=== PATIENT | female | born 2000 | race Caucasian/White ===

== ENCOUNTER 2019-03-03 08:47 | Inpatient (IN) | payer OTHER ==
[2019-03-03] MEDS ORDERED: Ampicillin 2 GM in Sodium Chloride 0.9% 100 ML IV ONE (10:43)
[2019-03-03] MEDS ORDERED: Nalbuphine 10 MG/ML Syringe IVPUSH PRN (10:43)
[2019-03-03] MEDS ORDERED: Sodium Chloride 0.9% 10 ML Syringe FLUSH PRN (10:43)
[2019-03-03] MEDS ORDERED: Oxytocin/Lactated Ringers 10 UNIT/1,000 ML BAG IV SCH (10:45)
[2019-03-03] MEDS: Lactated Ringers 1,000 ML IV SCH ×5 (11:11→21:59)
[2019-03-03] MEDS ORDERED: diphenhydrAMINE 50 MG/ML SDV IVPUSH PRN (12:00)
[2019-03-03] MEDS ORDERED: ePHEDrine 50 MG/ML SDV IVPUSH PRN (12:00)
[2019-03-03] MEDS: fentaNYL 100 MCG/2 ML SDV EPIDUR PRN ×2 (12:23→18:34)
[2019-03-03] MEDS: fentaNYL/Bupivacaine/NS 2 MCG-0.125% 250 ML EPIDUR PRN (12:24)
--- NOTE | 2019-03-03 12:28 | PCM.PREANE ---
Preanesthetic Assessment - Procedure Proposed Procedure: epidural - Anesthesia/Transfusion/Family Hx Anesthesia History: Prior Anesthesia Without Reaction Family History of Anesthesia Reaction: No Transfusion History: No Prior Transfusion(s) - Review of Systems General: Fatigue Pulmonary: No Symptoms Cardiovascular: No Symptoms Gastrointestinal: Abdominal Pain (labor) Neurological: No Symptoms Other: Reports: None - Physical Assessment Height: 1.7 m Weight: 106.594 kg ASA Class: 2 Mental Status: Alert & Oriented x3 Airway Class: Mallampati = 1 Dentition: Reports: Normal Dentition Thyro-Mental Finger Breadths: 3 Mouth Opening Finger Breadths: 3 ROM/Head Extension: Full Lungs: Clear to Auscultation, Normal Respiratory Effort Cardiovascular: Regular Rate, Regular Rhythm - Lab Values: Laboratory Last Values WBC 14.72 K/mm3 (3.98-10.04) H 03/03/19 11:00 RBC 4.56 M/mm3 (3.98-5.22) 03/03/19 11:00 Hgb 13.3 gm/dl (11.2-15.7) 03/03/19 11:00 Hct 39.0 % (34.1-44.9) 03/03/19 11:00 MCV 85.5 fl (79.4-94.8) 03/03/19 11:00 MCH 29.2 pg (25.6-32.2) 03/03/19 11:00 MCHC 34.1 g/dl (32.2-35.5) 03/03/19 11:00 RDW Std Deviation 41.5 fL (36.4-46.3) 03/03/19 11:00 Plt Count 254 K/mm3 (182-369) 03/03/19 11:00 MPV 13.8 fl (9.4-12.3) H 03/03/19 11:00 Neut % (Auto) 82.1 % (34.0-71.1) H 03/03/19 11:00 Lymph % (Auto) 12.0 % (19.3-51.7) L 03/03/19 11:00 Franklin % (Auto) 5.6 % (4.7-12.5) 03/03/19 11:00 Eos % (Auto) 0 (0.7-5.8) L 03/03/19 11:00 Baso % (Auto) 0.1 % (0.1-1.2) 03/03/19 11:00 Neut # (Auto) 12.09 K/mm3 (1.56-6.13) H 03/03/19 11:00 Lymph # (Auto) 1.77 K/mm3 (1.18-3.74) 03/03/19 11:00 Franklin # (Auto) 0.82 K/mm3 (0.24-0.36) H 03/03/19 11:00 Eos # (Auto) 0.00 K/mm3 (0.04-0.36) L 03/03/19 11:00 Baso # (Auto) 0.01 K/mm3 (0.01-0.08) 03/03/19 11:00 - Allergies Allergies/Adverse Reactions: Allergies Allergy/AdvReac Type Severity Reaction Status Date / Time No Known Allergies Allergy Verified 03/03/19 10:43 - Anesthesia Plan Pre-Op Medication Ordered: None - Acknowledgements Anesthesia Type Planned: Epidural Pt an Appropriate Candidate for the Planned Anesthesia: Yes Alternatives and Risks of Anesthesia Discussed w Pt/Guardian: Yes Pt/Guardian Understands and Agrees with Anesthesia Plan: Yes PreAnesthesia Questionnaire - Past Health History Medical/Surgical History: Denies Medical/Surgical History Other Respiratory History: as a child Gastrointestinal History: Reports: GERD Other Musculoskeletal History: fell on the ice last winter, seen for back pain at that time - HOME MEDS Home Medications: Home Meds Albuterol [Ventolin HFA] 1 puff INH ASDIRECTED PRN 08/07/14 [History] - CURRENT (IN HOUSE) MEDS Current Meds: Current Medications Diphenhydramine HCl (Benadryl) 25 mg IVPUSH Q6H PRN PRN Reason: Itching Ephedrine Sulfate (Ephedrine Sulfate) 5 mg IVPUSH ASDIRECTED PRN PRN Reason: HYPOTENTSION Fentanyl (Sublimaze) 100 mcg EPIDUR Q3H PRN PRN Reason: Pain Last Admin: 03/03/19 12:23 Dose: 100 mcg Fentanyl/Bupivacaine HCl (Fentanyl/Bupivacaine/Ns 2 Mcg-0.125% 250 Ml) 0 ml EPIDUR CONTINUOUS PRN PRN Reason: Pain Last Admin: 03/03/19 12:24 Dose: 250 ml Ampicillin Sodium 1 gm/ Sodium (Chloride) 100 mls @ 200 mls/hr IV Q4H LATESHA Lactated Ringer's (Ringers, Lactated) 1,000 mls @ 100 mls/hr IV ASDIRECTED LATESHA Last Admin: 03/03/19 12:24 Dose: 100 mls/hr Oxytocin/Lactated Ringer's (Pitocin In Lr 10 Units/1,000 Ml) 10 unit in 1,000 mls @ 12 mls/hr IV TITRATE LATESHA; Protocol Oxytocin/Lactated Ringer's (Pitocin In Lr 10 Units/1,000 Ml) 10 unit in 1,000 mls @ 500 mls/hr IV .CONTINUOUS LATESHA Nalbuphine HCl (Nubain) 10 mg IVPUSH Q2H PRN PRN Reason: Pain Last Admin: 03/03/19 11:12 Dose: 10 mg Ondansetron HCl (Zofran) 4 mg IVPUSH Q4H PRN PRN Reason: Nausea/Vomiting Sodium Chloride (Saline Flush) 10 ml FLUSH ASDIRECTED PRN PRN Reason: Keep Vein Open Discontinued Medications Ampicillin Sodium 2 gm/ Sodium (Chloride) 100 mls @ 200 mls/hr IV ONETIME ONE Stop: 03/03/19 11:12 Last Admin: 03/03/19 11:12 Dose: 200 mls/hr
--- NOTE | 2019-03-03 13:35 | PCM.LDHP ---
L&D History of Present Illness - General Date of Service: 03/03/19 Admit Problem/Dx: Patient Status Order with Admit Dx/Problem 03/03/19 10:43 Patient Status [ADT] Routine Admission Diagnosis/Problem Admission Diagnosis/Problem 03/03/19 13:22 Maribel is a 1 para 0 white female was admitted in early labor. The ange approximately every 3-5 minutes upon admission. Her NIRAV is 03/02/2019 placing her at 40-1/7 weeks gestational age. Source of Information: Patient History Limitations: Reports: No Limitations - History of Present Illness Introduction:: Maribel is a 1 para 0 white female was admitted in early labor. The ange approximately every 3-5 minutes upon admission. Her NIRAV is 03/02/2019 placing her at 40-1/7 weeks gestational age. Her NIRAV is determined by 1 piece supported by ultrasound on 10/09/2018. Labor started early this morning and has progressed to the point where patient is breathing through the contractions and has had nausea with emesis with the contractions. heart tones are reassuring. [employer] history: Patient is 1 para 0. LMP was on 05/26/2018. Ultrasound 2018 at 19 weeks gestational age confirmed LMP dating. Patient was seen on a regular basis since 10 weeks and 3 days. She's had a weight gain of approximately 16 pounds from 222 to 236 pounds. Incision has been unremarkable otherwise. Laboratory testing and : Blood is a positive with negative antibody screen. Hemoglobin is 13.0 g/dL. Platelets are 320,000. Dilatation was results. Syphilis nonreactive. Hepatitis B surface antigen nonreactive. Second trimester labs show hemoglobin 12.3 g/dL. Thousand. One-hour GTT was normal at 106 g/dL. Group B strep screen was positive. Chlamydia and gonorrhea were both negative on first visit. Allergies: none Medications: 1. vitamins 1 daily 2. Fluoxetine 20 mg by mouth daily 3. Cyclobenzaprine 5 mg 1-2 tabs by mouth every 8 hours when necessary for muscle spasm. 4. Promethazine 25 mg tablets every 6 hours when necessary for nausea. Past medical history: 1. Anxiety Past surgical history: 1. Tonsillectomy Family history: Mother with thyroid disease. Father with type 2 diabetes, hypertension, depression. Sister with a desmoid tumor. No anesthesia, bleeding, blood clotting problems noted. Review of systems: In general patient has no complaints. Skin: Negative Lungs: No infectious symptoms or shortness of breath Cardiovascular: No chest pain or exercise intolerance Breasts: See changes GI: Negative : Changes associated with Musculoskeletal: Negative Neurological: Negative In general the patient is well-developed, well-nourished, pleasant female of stated age in no acute distress. Blood pressure on last evaluation clinic was 132/84, pulse 86, weight was 236 pounds Skin is warm dry without lesions. HEENT, neck and back within normal limits. Lungs are clear with good breath sounds in all lung lew. Cardiovascular exam shows regular and rhythm without murmurs. Rest exam deferred Abdomen is gravid. Fundal height on last evaluation clinic and cyst with term Genital digital exam is 2 cm, effaced, artificial rupture membranes undertaken with resultant clear amniotic fluid. Extremities and neurological exam are grossly within normal limits. Pain Score: 7 - Related Data Allergies/Adverse Reactions: Allergies Allergy/AdvReac Type Severity Reaction Status Date / Time No Known Allergies Allergy Verified 03/03/19 10:43 Home Medications: Home Meds Albuterol [Ventolin HFA] 1 puff INH ASDIRECTED PRN 08/07/14 [History] Past Medical History - Past Health History Medical/Surgical History: Denies Medical/Surgical History Other Respiratory History: as a child Gastrointestinal History: Reports: GERD Other Musculoskeletal History: fell on the ice last winter, seen for back pain at that time H&P Review of Systems - Review of Systems: Review Of Systems: See Below L&D Exam - Exam Exam: See Below - Vital Signs Weight: 106.594 kg - Patient Data Lab Results Last 24 hrs: Laboratory Results - last 24 hr 03/03/19 Range/Units 11:00 WBC 14.72 H (3.98-10.04) K/mm3 RBC 4.56 (3.98-5.22) M/mm3 Hgb 13.3 (11.2-15.7) gm/dl Hct 39.0 (34.1-44.9) % MCV 85.5 (79.4-94.8) fl MCH 29.2 (25.6-32.2) pg MCHC 34.1 (32.2-35.5) g/dl RDW Std Deviation 41.5 (36.4-46.3) fL Plt Count 254 (182-369) K/mm3 MPV 13.8 H (9.4-12.3) fl Neut % (Auto) 82.1 H (34.0-71.1) % Lymph % (Auto) 12.0 L (19.3-51.7) % [place] % (Auto) 5.6 (4.7-12.5) % Eos % (Auto) 0 L (0.7-5.8) Baso % (Auto) 0.1 (0.1-1.2) % Neut # (Auto) 12.09 H (1.56-6.13) K/mm3 Lymph # (Auto) 1.77 (1.18-3.74) K/mm3 [place] # (Auto) 0.82 H (0.24-0.36) K/mm3 Eos # (Auto) 0.00 L (0.04-0.36) K/mm3 Baso # (Auto) 0.01 (0.01-0.08) K/mm3 Result Diagrams: 03/03/19 11:00 Problem List Initiated/Reviewed/Updated: Yes Orders Last 24hrs: Active Orders 24 hr Category Date Time Status Patient Status [ADT] Routine ADT 03/03/19 10:43 Active Activity as Tolerated [RC] PFP Care 03/03/19 10:43 Active Communication Order [RC] ASDIRECTED Care 03/03/19 10:43 Active Communication Order [RC] ASDIRECTED Care 03/03/19 11:59 Active Cooling Warming Measures [RC] ASDIRECTED Care 03/03/19 11:59 Active Heart Tones [RC] ASDIRECTED Care 03/03/19 10:43 Active Non Stress Test [RC] PER UNIT ROUTINE Care 03/03/19 10:43 Active Notify Provider [RC] ASDIRECTED Care 03/03/19 11:59 Active Notify Provider [RC] PFP Care 03/03/19 10:43 Active Notify Provider [RC] PRN Care 03/03/19 10:43 Active Oxygen Therapy [RC] ASDIRECTED Care 03/03/19 11:59 Active Peripheral IV Care [RC] . DIRECTED Care 03/03/19 10:43 Active Pulse Oximetry [RC] ASDIRECTED Care 03/03/19 11:59 Active Pump Management, Intrathecal [RC] ASDIRECTED Care 03/03/19 10:44 Active Vital Signs [RC] PER UNIT ROUTINE Care 03/03/19 10:43 Active Vital Signs [RC] Q1H Care 03/03/19 11:59 Active Regular Diet [DIET] Diet 03/03/19 Breakfast Active BLOOD BANK HOLD SPECIMEN [BBK] Stat Lab 03/03/19 10:43 Ordered RAPID PLASMA REAGIN,RPR [CHEM] Routine Lab 03/03/19 11:00 Received Ampicillin 1 gm Med 03/03/19 15:00 Active Sodium Chloride 0.9% [Normal Saline] 100 ml IV Q4H Bupivicaine/fentaNYL/NS [fentaNYL/Bupivacaine/NS 2 MCG- Med 03/03/19 12:00 Active 0.125% 250 ML] 0 ml EPIDUR CONTINUOUS PRN Lactated Ringers [Ringers, Lactated] 1,000 ml Med 03/03/19 10:45 Active IV ASDIRECTED Nalbuphine [Nubain] Med 03/03/19 10:43 Active 10 mg IVPUSH Q2H PRN Ondansetron [Zofran] Med 03/03/19 10:43 Active 4 mg IVPUSH Q4H PRN Oxytocin/Lactated Ringers [Pitocin in LR 10 Units/1,000 Med 03/03/19 10:45 Active ML] 10 unit in 1,000 ml IV .CONTINUOUS Oxytocin/Lactated Ringers [Pitocin in LR 10 Units/1,000 Med 03/03/19 10:45 Active ML] 10 unit in 1,000 ml IV TITRATE Sodium Chloride 0.9% [Saline Flush] Med 03/03/19 10:43 Active 10 ml FLUSH ASDIRECTED PRN diphenhydrAMINE [Benadryl] Med 03/03/19 12:00 Active 25 mg IVPUSH Q6H PRN ePHEDrine [ePHEDrine sulfate] Med 03/03/19 12:00 Active 5 mg IVPUSH ASDIRECTED PRN fentaNYL [Sublimaze] Med 03/03/19 12:00 Active 100 mcg EPIDUR Q3H PRN Electronic Heart Tones Ext w TOCO [WOMSER] Oth 03/03/19 10:43 Ordered Routine Electronic Heart Tones Internal [WOMSER] Per Unit Oth 03/03/19 10:43 Ordered Routine Peripheral IV Insertion Adult [OM.PC] Routine Oth 03/03/19 10:43 Ordered Resuscitation Status Routine Resus Stat 03/03/19 10:43 Ordered Medication Orders Diphenhydramine HCl (Benadryl) 25 mg IVPUSH Q6H PRN PRN Reason: Itching Ephedrine Sulfate (Ephedrine Sulfate) 5 mg IVPUSH ASDIRECTED PRN PRN Reason: HYPOTENTSION Fentanyl (Sublimaze) 100 mcg EPIDUR Q3H PRN PRN Reason: Pain Last Admin: 03/03/19 12:23 Dose: 100 mcg Fentanyl/Bupivacaine HCl (Fentanyl/Bupivacaine/Ns 2 Mcg-0.125% 250 Ml) 0 ml EPIDUR CONTINUOUS PRN PRN Reason: Pain Last Admin: 03/03/19 12:24 Dose: 250 ml Ampicillin Sodium 1 gm/ Sodium (Chloride) 100 mls @ 200 mls/hr IV Q4H LATESHA Lactated Ringer's (Ringers, Lactated) 1,000 mls @ 100 mls/hr IV ASDIRECTED LATESHA Last Admin: 03/03/19 12:24 Dose: 100 mls/hr Infusion: 03/03/19 12:24 Dose: 100 mls/hr Admin: 03/03/19 11:11 Dose: 100 mls/hr Oxytocin/Lactated Ringer's (Pitocin In Lr 10 Units/1,000 Ml) 10 unit in 1,000 mls @ 12 mls/hr IV TITRATE LATESHA; Protocol Oxytocin/Lactated Ringer's (Pitocin In Lr 10 Units/1,000 Ml) 10 unit in 1,000 mls @ 500 mls/hr IV .CONTINUOUS LATESHA Nalbuphine HCl (Nubain) 10 mg IVPUSH Q2H PRN PRN Reason: Pain Last Admin: 03/03/19 11:12 Dose: 10 mg Ondansetron HCl (Zofran) 4 mg IVPUSH Q4H PRN PRN Reason: Nausea/Vomiting Sodium Chloride (Saline Flush) 10 ml FLUSH ASDIRECTED PRN PRN Reason: Keep Vein Open Assessment/Plan Comment:: 1. 40 1/7 week intrauterine , active labor, change in cervix 2. Group B strep positive status patient non-allergic to penicillinscandidate for ampicillin prophylaxis per protocol. 3. Plans to breast-feed 4. Rubella nonimmune. 5. Desires epidural in labor and delivery Plan: 1. Anticipate normal spontaneous vaginal delivery 2. Ampicillin per protocol 3. Support breast-feeding decision 4. CBC and RPR upon admission per protocol.
[2019-03-03] MEDS: Oxytocin/Lactated Ringers 10 UNIT/1,000 ML BAG IV SCH (13:53)
[2019-03-03] MEDS: Ampicillin 1 GM in Sodium Chloride 0.9% 100 ML IV SCH ×3 (15:00→23:24)
[2019-03-03] MEDS: Ondansetron 4 MG/2 ML SDV IVPUSH PRN (16:19)
--- NOTE | 2019-03-03 18:37 | PCM.SN ---
- Free Text/Narrative Note: 1817 Pt c/o pain left lower quadrant bolus with 2ml fentanyl 10 ml .25% bupivacaine VSS out of room at 184
[2019-03-03] MEDS: FLUoxetine 20 MG Cap PO SCH (20:49)
[2019-03-03] MEDS ORDERED: hydrOXYzine HCl 25 MG Tab PO ONE (21:17)
[2019-03-04] MEDS ORDERED: Labetalol 100 MG Tab PO SCH
[2019-03-04] MEDS ORDERED: Bupivacaine 0.25% 10 ML SDV ONE
--- NOTE | 2019-03-04 00:56 | PCM.SN ---
- Free Text/Narrative Note: 0050 increase epidural gtt from 10ml/hr to 14ml/hr VSS pt resting comfortably
[2019-03-04] MEDS ORDERED: Labetalol 100 MG Tab PO ONE ×2 (02:16→02:45)
[2019-03-04] MEDS: Ampicillin 1 GM in Sodium Chloride 0.9% 100 ML IV SCH ×3 (03:00→11:23)
[2019-03-04] MEDS: fentaNYL/Bupivacaine/NS 2 MCG-0.125% 250 ML EPIDUR PRN (03:13)
[2019-03-04] MEDS: Lactated Ringers 1,000 ML IV SCH (07:13)
[2019-03-04] MEDS: Oxytocin/Lactated Ringers 10 UNIT/1,000 ML BAG IV SCH (07:32)
[2019-03-04] MEDS: Labetalol 100 MG Tab PO SCH ×4 (08:04→23:33)
[2019-03-04] MEDS: Ondansetron 4 MG/2 ML SDV IVPUSH PRN (09:45)
[2019-03-04] MEDS ORDERED: Acetaminophen 325 MG Tab PO PRN (11:23)
[2019-03-04] MEDS ORDERED: Measles, Mumps & Rubella Vaccine 0.5 ML SDV SUBCUT ONE (11:23)
[2019-03-04] MEDS ORDERED: Magnesium Sulfate/Water 4 GM in Premix Bag 1 BAG IV ONE ×2 (12:00)
[2019-03-04] MEDS: Magnesium Sulfate/Water 40 GM/1,000 ML BAG IV SCH (12:32)
[2019-03-04] MEDS: Ibuprofen 600 MG Tab PO PRN ×2 (15:15→18:48)
--- NOTE | 2019-03-04 17:13 | PCM48HPAN ---
Post Anesthesia Note - EVALUATION WITHIN 48HRS OF ANESTHETIC Vital Signs in Normal Range: Yes Patient Participated in Evaluation: Yes Respiratory Function Stable: Yes Airway Patent: Yes Cardiovascular Function Stable: Yes Hydration Status Stable: Yes Pain Control Satisfactory: Yes Nausea and Vomiting Control Satisfactory: Yes Mental Status Recovered: Yes Vital Signs: Last Vital Signs Temp 36.4 C 03/04/19 15:08 Pulse 93 03/04/19 16:51 Resp 16 03/04/19 16:51 BP 140/90 03/04/19 16:51 Pulse Ox 100 03/04/19 16:51
--- NOTE | 2019-03-04 18:28 | PCM.SN ---
- Free Text/Narrative Note: Maribel bradshaw a 1 para 0 white female was admitted in early labor on 03/03/2019. Contractions were occurring approximately every 3-5 minutes upon admission. Her NIRAV is 03/02/2019 placing her at 40-1/7 weeks gestational age. Admitted in labor. During the course of her labor she is known to have progressively worsening blood pressures to the point where she is running 160s over low 100s. Preeclampsia labs were obtained and showed elevated liver function studies, and elevated uric acid and protein in her urine. Findings were consistent with preeclampsia with severe features. However, any significant symptomatology. She specifically had no headache, vision changes, right upper quadrant pain or irritability. Her pre-yasmany lab clinical picture showed no evidence of progression of hypertension or preeclampsia signs/symptoms. Deep tendon reflexes were negligible. Patient was treated with labetalol 100 mg orally because of the slowly rising blood pressures. When this did not adequately control blood pressure 200 mg more were given. With this patient obtained very quick and adequate control over the blood pressure elevation. She had an epidural placed for labor analgesia. Maribel went on to complete cervical dilation at approximately 0830 hrs. She began pushing and at approximately 1045 hrs. on 03/04/2019 she became somewhat exhausted. Is at this time discussion is held her as to options of therapy including continued pushing, vacuum extraction attempt versus section. She decided on an attempt at vacuum extraction delivery and this was performed. Procedure, risks, benefits and alternatives of care were thoroughly discussed with patient. She gave verbal consent. Acute extractor was applied and with one contraction patient was able to deliver the baby's head. Baby was then completely delivered without problems. There was moderate difficulty with delivery of the anterior shoulder but not to the point of shoulder dystocia. Delivery occurred at 1049 hrs. Baby was in a right occiput posterior position and rotated with the vacuum extraction delivery. The baby was delivered and placed on mom's abdomen. Baby was female, weighed 3560 g (7 lbs. 14 oz.) and was 20.5 inches in length. Pitocin was increased to 500 mL per hour to increase uterine tone and attempt to reduce risk of bleeding. Nose and mouth were bulb suctioned The patient had a vaginal tear extending out onto the medial right labia. Delivered with 3-0 Monocryl suture in a running suture vaginally and 3 interrupted sutures on the right labia. She tolerated this well and laboring epidural analgesia was used for laceration repair anesthesia. The cord blood was obtained. The umbilical cord was noted to have 3 vessels. Placenta delivered at 1101 hrs. in a Mccartney presentation, appeared intact and complete and was discarded per patient desire. Patient will be started on IV magnesium sulfate which will be continued 24 hours per protocol. Blood levels will be obtained to maintain adequate prophylaxis for seizures. The patient plans to breast-feed. Estimated blood loss was 200 mL.
[2019-03-04] MEDS: FLUoxetine 20 MG Cap PO SCH (23:46)
[2019-03-05] MEDS ORDERED: Magnesium Sulfate/Water 40 GM/1,000 ML BAG IV SCH (07:20)
[2019-03-05] MEDS: Magnesium Sulfate/Water 40 GM/1,000 ML BAG IV SCH (07:33)
[2019-03-05] MEDS: Labetalol 100 MG Tab PO SCH ×3 (07:57→19:53)
[2019-03-05] MEDS: Prenatal Multivitamin with Calcium/Folic Acid/Iron Tab PO SCH (09:17)
[2019-03-05] MEDS: Ibuprofen 600 MG Tab PO PRN ×2 (11:30→20:10)
--- NOTE | 2019-03-05 13:35 | PCM.SN ---
- Free Text/Narrative Note: note: Patient is doing well in the period. Minimal lochia, voiding well, ambulated without problems. Nursing without concerns. Concerned she did have was inability to void. Catheter was placed and thousand cc of urine was removed. It remains in place at this time or be removed in a couple hours to attempt to try to void again. Magnesium sulfate has been discontinued after approximately 24 hours from the time of delivery. This because condition is stable and blood pressures have been normal. Her deep tendon reflexes are within normal limits. While on magnesium sulfate patient's blood levels slowly crept up but were still within therapeutic range. Patient is afebrile, vital signs are stable. Blood pressures have been relatively stable. Abdomen is flat, soft, uterus is below the umbilicus and is firm and nontender. Legs are nontender. Neurological exam shows mildly increased deep tendon reflex bilaterally but still within normal limits. No clonus is noted. Laboratory results showed a normal platelet count, essentially normal CBC. Liver function studies with both AST and ALT are elevated. Uric acid 7.1. Findings consistent with preeclampsia was severe features relative to the laboratory testing. Assessment: 1. recovery going well 2. Preeclampsia with severe features . Plan: 1. Routine care. 2. monitor blood pressures and deep tendon reflexes. 3. Patient be discharged home within the next 24-48 hours.
[2019-03-05] MEDS: FLUoxetine 20 MG Cap PO SCH (21:40)
[2019-03-06] MEDS: Labetalol 100 MG Tab PO SCH ×2 (04:12→07:07)
--- NOTE | 2019-03-06 07:39 | PCM.DCSUM1 ---
Discharge Summary - Hospital Course Diagnosis: Stroke: No - Discharge Data Discharge Date: 03/06/19 Discharge Disposition: Home, Self-Care 01 Condition: Good - Referral to Home Health Primary Care Physician: Trini Streeter MD - Patient Summary/Data Hospital Course: Maribel bradshaw a 1 para 0 white female was admitted in early labor on 03/03/2019. Contractions were occurring approximately every 3-5 minutes upon admission. Her NIRAV is 03/02/2019 placing her at 40-1/7 weeks gestational age. Admitted in labor. During the course of her labor she is known to have progressively worsening blood pressures to the point where she is running 160s over low 100s. Preeclampsia labs were obtained and showed elevated liver function studies, and elevated uric acid and protein in her urine. Findings were consistent with preeclampsia with severe features. However, any significant symptomatology. She specifically had no headache, vision changes, right upper quadrant pain or irritability. Her pre-yasmany lab clinical picture showed no evidence of progression of hypertension or preeclampsia signs/symptoms. Deep tendon reflexes were negligible. Patient was treated with labetalol 100 mg orally because of the slowly rising blood pressures. When this did not adequately control blood pressure 200 mg more were given. With this patient obtained very quick and adequate control over the blood pressure elevation. She had an epidural placed for labor analgesia. Maribel went on to complete cervical dilation at approximately 0830 hrs. She began pushing and at approximately 1045 hrs. on 03/04/2019 she became somewhat exhausted. Is at this time discussion is held her as to options of therapy including continued pushing, vacuum extraction attempt versus section. She decided on an attempt at vacuum extraction delivery and this was performed. Procedure, risks, benefits and alternatives of care were thoroughly discussed with patient. She gave verbal consent. Acute extractor was applied and with one contraction patient was able to deliver the baby's head. Baby was then completely delivered without problems. There was moderate difficulty with delivery of the anterior shoulder but not to the point of shoulder dystocia. Delivery occurred at 1049 hrs. Baby was in a right occiput posterior position and rotated with the vacuum extraction delivery. The baby was delivered and placed on mom's abdomen. Baby was female, weighed 3560 g (7 lbs. 14 oz.) and was 20.5 inches in length. Pitocin was increased to 500 mL per hour to increase uterine tone and attempt to reduce risk of bleeding. Nose and mouth were bulb suctioned The patient had a vaginal tear extending out onto the medial right labia. Delivered with 3-0 Monocryl suture in a running suture vaginally and 3 interrupted sutures on the right labia. She tolerated this well and laboring epidural analgesia was used for laceration repair anesthesia. The cord blood was obtained. The umbilical cord was noted to have 3 vessels. Placenta delivered at 1101 hrs. in a [place]art[place] presentation, appeared intact and complete and was discarded per patient desire. Patient will be started on IV magnesium sulfate which will be continued 24 hours per protocol. Blood levels will be obtained to maintain adequate prophylaxis for seizures. The patient plans to breast-feed. Estimated blood loss was 200 mL. - Patient Instructions Diet: Usual Diet as Tolerated Activity: No Strenuous Activities Driving: May Drive Today Showering/Bathing: July Shower Notify Provider of: Fever - Discharge Plan *PRESCRIPTION DRUG MONITORING PROGRAM REVIEWED*: No *COPY OF PRESCRIPTION DRUG MONITORING REPORT IN PATIENT BERNARD: No Home Medications: Home Meds FLUoxetine HCl [Prozac] 20 mg PO DAILY 03/03/19 [History] Mv-Mn/Iron/FA/Herbal/Digestive [ One Tablet] 1 each PO DAILY 03/03/19 [ History] Referrals: Jose Gaona MD [Physician] - - Discharge Summary/Plan Comment DC Time >30 min.: No - General Info Date of Service: 03/06/19 Functional Status: Reports: Pain Controlled - Review of Systems General: Reports: No Symptoms HEENT: Reports: No Symptoms Pulmonary: Reports: No Symptoms Cardiovascular: Reports: No Symptoms Gastrointestinal: Reports: No Symptoms Genitourinary: Reports: No Symptoms Musculoskeletal: Reports: No Symptoms Skin: Reports: No Symptoms Neurological: Reports: No Symptoms Psychiatric: Reports: No Symptoms - Patient Data Vitals - Most Recent: Last Vital Signs Temp 36.6 C 03/06/19 01:56 Pulse 65 03/06/19 01:56 Resp 14 03/06/19 01:56 BP 130/93 H 03/06/19 01:56 Pulse Ox 97 03/06/19 01:56 Weight - Most Recent: 106.594 kg I&O - Last 24 hours: Intake & Output 03/05/19 03/06/19 03/06/19 22:59 06:59 14:59 Output Total 1850 450 Balance -1850 -450 Med Orders - Current: Current Medications Acetaminophen (Tylenol) 650 mg PO Q4H PRN PRN Reason: mild pain or fever Diphenhydramine HCl (Benadryl) 25 mg IVPUSH Q6H PRN PRN Reason: Itching Ephedrine Sulfate (Ephedrine Sulfate) 5 mg IVPUSH ASDIRECTED PRN PRN Reason: HYPOTENTSION Fentanyl (Sublimaze) 100 mcg EPIDUR Q3H PRN PRN Reason: Pain Last Admin: 03/03/19 18:34 Dose: 100 mcg Fentanyl/Bupivacaine HCl (Fentanyl/Bupivacaine/Ns 2 Mcg-0.125% 250 Ml) 0 ml EPIDUR CONTINUOUS PRN PRN Reason: Pain Last Admin: 03/04/19 03:13 Dose: 250 ml Fluoxetine HCl (Prozac) 20 mg PO BEDTIME LATESHA Last Admin: 03/05/19 21:40 Dose: 20 mg Magnesium Sulfate (Magnesium Sulfate In Water Premix) 40 gm in 1,000 mls @ 25 mls/hr IV ASDIRECTED LATESHA Ibuprofen (Motrin) 600 mg PO Q4H PRN PRN Reason: Mild pain or fever Last Admin: 03/05/19 20:10 Dose: 600 mg Labetalol HCl (Normodyne) 300 mg PO Q6H [facility] Last Admin: 03/06/19 07:07 Dose: Not Given Prenat Multivit/[employer]/Iron/Folic Ac ( Plus Iron) 1 each PO DAILY [facility] Last Admin: 03/05/19 09:17 Dose: 1 each Sodium Chloride (Saline Flush) 10 ml FLUSH ASDIRECTED PRN PRN Reason: Keep Vein Open Discontinued Medications Bupivacaine HCl (Sensorcaine-Mpf 0.25%) 20 ml .ROUTE .STK-MED ONE Stop: 03/04/19 00:01 Hydroxyzine HCl (Atarax) 50 mg PO ONETIME ONE Stop: 03/03/19 21:18 Last Admin: 03/03/19 22:15 Dose: 50 mg Ampicillin Sodium 2 gm/ Sodium (Chloride) 100 mls @ 200 mls/hr IV ONETIME ONE Stop: 03/03/19 11:12 Last Admin: 03/03/19 11:12 Dose: 200 mls/hr Ampicillin Sodium 1 gm/ Sodium (Chloride) 100 mls @ 200 mls/hr IV Q4H [facility] Last Admin: 03/04/19 11:23 Dose: Not Given Lactated Ringer's (Ringers, Lactated) 1,000 mls @ 100 mls/hr IV ASDIRECTED LATESHA Last Admin: 03/04/19 07:13 Dose: 100 mls/hr Oxytocin/Lactated Ringer's (Pitocin In Lr 10 Units/1,000 Ml) 10 unit in 1,000 mls @ 12 mls/hr IV TITRATE LATESHA; Protocol Last Titration: 03/04/19 10:50 Dose: 999 mls/hr Oxytocin/Lactated Ringer's (Pitocin In Lr 10 Units/1,000 Ml) 10 unit in 1,000 mls @ 500 mls/hr IV .CONTINUOUS LATESHA Magnesium Sulfate (Magnesium Sulfate In Water Premix) 40 gm in 1,000 mls @ 50 mls/hr IV ASDIRECTED LATESHA Last Admin: 03/05/19 07:33 Dose: 50 mls/hr Magnesium Sulfate 4 gm/ Premix 50 mls @ 100 mls/hr IV ONETIME ONE Stop: 03/04/19 12:29 Last Admin: 03/04/19 12:01 Dose: 100 mls/hr Labetalol HCl (Normodyne) 100 mg PO Q6HR LATESHA Last Admin: 03/04/19 01:01 Dose: 100 mg Labetalol HCl (Normodyne) 200 mg PO ONETIME ONE Stop: 03/04/19 02:17 Last Admin: 03/04/19 02:45 Dose: Not Given Labetalol HCl (Normodyne) 100 mg PO ONETIME ONE Stop: 03/04/19 02:46 Last Admin: 03/04/19 02:45 Dose: Not Given Measles/Mumps/Rubella Vaccine Live (M-M-R Ii Vaccine) 0.5 ml SUBCUT .ONCE ONE Stop: 03/04/19 11:24 Nalbuphine HCl (Nubain) 10 mg IVPUSH Q2H PRN PRN Reason: Pain Last Admin: 03/03/19 11:12 Dose: 10 mg Ondansetron HCl (Zofran) 4 mg IVPUSH Q4H PRN PRN Reason: Nausea/Vomiting Last Admin: 03/04/19 09:45 Dose: 4 mg - Exam General: Reports: Alert, Oriented HEENT: Reports: Pupils Equal, Pupils Reactive, EOMI, Mucous Membr. Moist/[place] Neck: Reports: Supple Lungs: Reports: Clear to Auscultation, Normal Respiratory Effort Cardiovascular: Reports: Regular Rate, Regular Rhythm GI/Abdominal Exam: Normal Bowel Sounds, Soft, Non-Tender, No Organomegaly, No Distention, No Abnormal Bruit, No Mass, Pelvis Stable Back Exam: Reports: Normal Inspection, Full Range of Motion Extremities: Normal Inspection, Normal Range of Motion, Non-Tender, No Pedal Edema, Normal Capillary Refill Skin: Reports: Warm, Dry, Intact Wound/Incisions: Reports: Healing Well Neurological: Reports: No New Focal Deficit Psy/Mental Status: Reports: Alert, Normal Affect, Normal Mood
[2019-03-06] MEDS: Prenatal Multivitamin with Calcium/Folic Acid/Iron Tab PO SCH (08:50)
[2019-03-06] MEDS: Ibuprofen 600 MG Tab PO PRN (08:51)
[2019-03-06 08:58] VITALS: BP 121/95; PULSE 68
== END 2019-03-06 10:01 | disposition home or self-care (01) | DRG 807 ==
LOC: JD.OBCHECK 08:47 → JD.OB 08:47 → JD.OBCHECK 10:43 → JD.OB 10:43 → OBSVTOIN 03-04 10:49 → JD.OB 03-04 10:50
PROVIDERS: ADMIT Obstetrics & Gynecology; ATTEND Obstetrics & Gynecology
PROC: 10D07Z6 Extraction of Products of Conception, Vacuum, Via Natural or Artificial Opening (ICD-10-PCS; principal; 2019-03-04)
PROC: 10907ZC Drainage of Amniotic Fluid, Therapeutic from Products of Conception, Via Natural or Artificial Opening (ICD-10-PCS; 2019-03-04)
PROC: 3E033VJ Introduction of Other Hormone into Peripheral Vein, Percutaneous Approach (ICD-10-PCS; 2019-03-04)
PROC: 3E0R3BZ Introduction of Anesthetic Agent into Spinal Canal, Percutaneous Approach (ICD-10-PCS; 2019-03-04)
DX: O48.0 Post-term pregnancy (principal); Z37.0 Single live birth; O99.824 Streptococcus B carrier state complicating childbirth; O14.14 Severe pre-eclampsia complicating childbirth; Z87.891 Personal history of nicotine dependence; Z3A.40 40 weeks gestation of pregnancy
CPT/HCPCS: 01967; 36415; 51701; 51702; 59025; 59409; 81003; 82565; 82570; 83615; 83735; 84156; 84450; 84460; 84520; 84550; 85025; 86592; A9270-GY; J0290; J2300; J2405; J2590; J3010; J3475; J3490; J7050; J7120